=== PATIENT | female | born 1990 | race Caucasian/White ===

== ENCOUNTER 2018-04-13 03:59 | Inpatient (IN) ==
--- OUTSIDE RECORDS SUMMARY | 2018-04-13 04:04 | External Medical Summary | Continuity of Care Document ---
:1990 Author Organization [facility] Address [address] [place], [place] [id number] Phone Care Team Providers Name Role Phone Mallory Chamberlain APRN Unavailable Unavailable Allergies, Adverse Reactions, Alerts Substance Reaction Severity Status Sulfa (Sulfonamide Antibiotics) Hives Unknown Active Medications Medication Instructions Dosage Effective Dates Status Comments (start - stop) Iron (ferrous take 1 tablet by Not Available - Active sulfate) 325 mg oral route every (65 mg iron) day tablet Vitamin take 1 tablet by Not Available - Active tablet oral route every day Vitamin C 100 mg - Active tablet Problems Condition Effective Dates (start - stop) Clinical Status Encounter for suprvsn of normal - , third trimester 31 weeks gestation of - Encounter for suprvsn of normal - , first trimester 10 weeks gestation of - Abnormal ultrasonic finding on - screening of mother Encounter for suprvsn of normal - , third trimester 29 weeks gestation of - Abnormal ultrasonic finding on - screening of mother Encounter for suprvsn of normal - , second trimester 19 weeks gestation of - Abnormal ultrasonic finding on - screening of mother Maternal care for oth - abnormality and damage, unsp 23 weeks gestation of - Abnormal ultrasonic finding on - screening of mother Maternal care for oth - abnormality and damage, unsp 27 weeks gestation of - Family history of endo, nutritional - and metabolic diseases Abnormal ultrasonic finding on - screening of mother Maternal care for oth - abnormality and damage, unsp 33 weeks gestation of - Family history of endo, nutritional - and metabolic diseases Abnormal ultrasonic finding on - screening of mother Encounter for suprvsn of normal - , second trimester 23 weeks gestation of - Encounter for suprvsn of normal - , second trimester 14 weeks gestation of - Encounter for suprvsn of normal - , second trimester 19 weeks gestation of - Procedures Procedure Date OB Visit No Charge Results Test Name Date and Time Measure Units Reference Range Abnormal Flag Comments Unknown Advance Directives Directive Yes / No Effective Date File Name Unknown Encounters Encounter Practice Location Reason(s) Diagnoses Date Provider Care Team Description For Visit Members Rajiv [place] Abnormal February- Sobbing Referring In Womens ultrasonic 0-201 [place]. Provider: Marielena JOSEPH, finding on 8 [address] [place] [address] Medical [place] [address], 1522, screening of Center [address] [place], mother[place]aternal [place], care for oth [address] [id number], [address], Drive abnormality and [place], [address], tel:+2 damage, unsp33 Robbie [place], weeks [place] [address], [place], [address]. of [place]. tel: pregnancyFamily tel: [phone] history of endo, [id number] nutritional and metabolic diseases [facility] Encounter for Apr-2 Sobbing Referring In Womens suprvsn of 6-201 [place]. Provider: Marielena JOSEPH, normal 8 [address] [place] [address] , third Medical [place], 1522, [id number] Center [address] [place], weeks gestation [place], of Suite Center [id number], [address], [address] [place], [address], tel:[phone] Rob[place], [address], [place], [address]. [place]. tel: tel: [phone] Rajiv [place] Abnormal Apr-1 Sobbing Referring In Womens ultrasonic [place]. Provider: Marielena JOSEPH, finding on 8 700 [facility] Medical [place], 1522, screening of Center 700 [facility], for suprvsn of Suite Center [id number], normal 120, Drive [place] , third [place], [address], tel:+2 [id number] Robbie [place]IE[place], weeks gestation [address], [place], [address]. of [place]. tel: tel: [phone] [facility] Abnormal Mar-2 Sobbing Referring In Womens ultrasonic [place]. Provider: Marielena JOSEPH, finding on 8 700 [facility] Medical [place], 1522, screening of Center [address] [place] [address], care for ot [address] [id number], [address], Drive [place] abnormality and [place], [address], tel:+ damage, unsp27 Robbie NORIEGA, weeks gestation [address], [place], [address]. of [place]. tel: pregnancyFamily tel: [phone] history of endo, [id number] nutritional and metabolic diseases [facility] Abnormal Feb-2 Sobbing Referring In Womens ultrasonic [place]. Provider: Marielena JOSEPH, finding on 8 700 [facility] Medical [place], 1522, screening of Center 700 [facility], for suprvsn of Suite Center [id number], normal 120, Drive [place] , [place], [address], tel:+2 second Robbie NORIEGA, [id number], [place], [address]. weeks gestation [place]. tel: of tel: [phone] [facility] Abnormal Feb-2 Sobbing Referring In Womens Ultrasound ultrasonic [place]. Provider: Marielena JOSEPH, finding on 8 700 [facility] Medical [place], 1522, screening of Center [address] [place] [address], care for ot Suite [address] [id number], 120, Drive [place] abnormality and [place], [address], tel:+2 damage, unsp23 Robbie NORIEGA, weeks gestation [address], [place], [address]. of [place]. tel: tel: [phone] Rajiv [place] Abnormal Feb-0 Sobbing Referring In Womens ultrasonic [place]. Provider: Marielena JOSEPH, finding on 8 700 [facility] Medical [place], 1522, screening of Center [address] [place], [facility]ounter [facility], [facility], for suprvsn of Suite Center [id number], normal 120, Drive [place] , [place], [address], tel:+[phone] second Robbie NORIEGA, [email or web address] [address], [place], [address]. weeks gestation [place]. tel: of tel: [phone] Rajiv [place] Encounter for Feb-0 Sobbing Referring In Womens Ultrasound suprvsn of [place]. Provider: Marielena JOSEPH, normal 8 700 [facility] Box , Medical [place], 1522, second Center [address] [place], [address], [facility], weeks gestation Suite Center [id number], of [address], [address] [place], [address], tel:+[phone] Robbie [place], [address], [place], [address]. [place]. tel: tel: [phone] Rajiv [place] Encounter for Dec-2 Sobbing Referring In Womens suprvsn of 8 [place]. Provider: Marielena JOSEPH, normal 7 700 [facility] Box , Medical [place], 1522, second Center [address] [place], [address], [facility], weeks gestation Suite Center [id number], of 120, [address] [place], [address], tel:+ Robbie [place], [address], [place], [address]. [place]. tel: tel: [phone] Rajiv [place] Encounter for Nov-3 Sobbing Referring In Womens suprvsn of 0-201 [place]. Provider: Marielena JOSEPH, normal 7 700 [place] PO Box , first Medical [place], 1522, Center [address] [place], weeks gestation [address], [facility], of Suite Center [id number], [address], Drive [place], [address], tel:+[phone] Robbie [place], [address], [place], [address]. [place]. tel:[phone] tel: [phone] Associates [facility] [place] In Womens 1-201 [facility], 7 700 [facility] [address], [address] [place], [facility] [place], 120, [id number], [place], [place], tel:[phone] , [place]. tel: [phone] Family History Family Member Diagnosis Age At Onset Mother Hypertension Son Thyroid Disorder Immunizations Vaccine Date Status Comments Tdap completed Source: New Immunization Record Influenza, injectable, completed Source: Other Provider quadrivalent, preservative free, 3 yrs or older Payers Payer name Insurance type Covered republican ID Authorization(s) [employer] [id number] [facility] - [id number] Medicaid BCBS Out Of State [id number] [employer] [id number] [facility] - [id number] Medicaid Social History Type Description Quantity Date Captured Alcohol Use Details No Caffeine Use Details Unknown Tobacco Use Status Unknown Smoking Status Never smoker Vital Signs Date / Height Weight BMI Pulse Blood Temperature Respiratory Body Head BMI Time: Rate Pressure Rate Surface Circumference percentile Area 125.70 22.6 108/73 -2018 lbs 2 mm[Hg] 1:07 kg/m PM eter (2) Chief Complaint And Reason For Visit Unknown Chief Complaint And Reason For Visit Reason For Referral Reason For Referral Unknown Plan Of Care Date Type Action Status Appointment Graciela Gilbert BOOKED Future Order: Radiology Order Ultrasound, OB Limited ([id number]) Ordered Future Order: Radiology Order Complete OB Ultrasound > 14 Ordered Weeks ([id number]) Date Type Problem Goal Intervention Status Start Date Unknown. History Of Present Illness Encounter Date Complaint History Of Present Illness This patient has no known history of present illness Functional Status Encounter Date Functional Assessment Cognitive Assessment Unknown Medications Administered Medication Instructions Dosage Effective Dates (start - stop) Status Comments Drug Treatment Unknown Instructions Date Instruction Additional Information HIV and other routine tests risk factors identified by history anticipated course of care nutrition and weight gain counseling, special diet toxoplasmosis precautions (cats / raw meat) sexual activity exercise indications for ultrasound influenza vaccine environmental / work hazards travel tobacco (ask, advise, assess, assist and arrange) alcohol illicit / recreational drugs use of any medications (including supplements, vitamins, herbs, OTC drugs) smoking counseling domestic violence seat belt use childbirth classes / hospital facilities hospital registration genetic testing new ob handbook risks
--- OUTSIDE RECORDS SUMMARY | 2018-04-13 04:04 | External Medical Summary | Continuity of Care Document ---
:1990 Author Organization [facility] Address [address] [place], [place] [id number] Phone Care Team Providers Name Role Phone Mallory Chamberlain APRN Unavailable Unavailable Allergies, Adverse Reactions, Alerts Substance Reaction Severity Status Sulfa (Sulfonamide Antibiotics) Hives Unknown Active Medications Medication Instructions Dosage Effective Dates Status Comments (start - stop) Vitamin take 1 tablet by Not Available - Active tablet oral route every day Problems Condition Effective Dates (start - stop) Clinical Status Abnormal ultrasonic finding on - screening of mother Maternal care for oth - abnormality and damage, unsp 23 weeks gestation of - Encounter for [...] weeks gestation of - Procedures Procedure Date Ultrasnd exam, preg uterus, limited Echo exam of heart Doppler color flow mapping Results Test Name Date and Time Measure Units Reference Range Abnormal Flag Comments Unknown Advance Directives Directive Yes / No Effective Date File Name Unknown Encounters Encounter Practice Location Reason(s) Diagnoses Date Provider Care Team Description For Visit Members [facility] Abnormal Feb-2 Sobbing Referring In Womens ultrasonic [place]. Provider: Marielena JOSEPH, finding on 8 700 [facility] Medical [place] L, 1522, screening of Center [address] [place], [facility], for suprvsn of Suite Center [id number], normal 120, Drive [place] , [place], [address], tel:+[phone] second Robbie NORIEGA, [email or web address] [address], [place], [address]. weeks gestation [place]. tel: of tel: [phone] [facility] Abnormal Feb-2 Sobbing Referring In Womens Ultrasound ultrasonic [place]. Provider: Marielena JOSEPH, finding on 8 700 [facility] Medical [place] L, 1522, screening of Center 700 [place], [facility]aternal [facility], care for oth Suite [address] [id number], [address], Drive [place] abnormality and [place], [address], tel:+[phone] damage, unsp23 [place], weeks [place] [address], [place], [address]. of [place]. tel: tel: [phone] [facility] Abnormal Feb-0 Sobbing Referring In Womens ultrasonic [place]. Provider: Marielena JOSEPH, finding on 8 700 [facility] Medical [place], 1522, screening of Center [address] [place], [facility], for suprvsn of Suite Center [id number], normal 120, Drive [place] , [place], [address], tel:+[phone] second Robbie NORIEGA, [id number] [address], [place], [address]. weeks gestation [place]. tel: of tel: [phone] [facility] Encounter for Feb-0 Sobbing Referring In Womens Ultrasound suprvsn of [place]. Provider: Marielena JOSEPH, normal 8 700 [facility] , Medical [place], 1522, second Center [address] [place], [email or web address], [facility], weeks gestation Suite Center [id number], of [address], Drive [place], [address], tel:+ Rob[place], [address], [place], [address]. [place]. tel: tel: [phone] Rajiv [place] Encounter for Dec-2 Sobbing [facility] 8-201 [place]. Provider: Marielena JOSEPH, poppy 7 700 [place] [address] Box , Medical [place], 1522, second Center [address] [place], [email or web address], [facility], weeks gestation Suite [address] [id number], of [address], Drive [place], [address], tel:+ Rob[place], [address], [place], [address]. [place]. tel: tel: [phone] Rajiv [place] Encounter for Nov-3 Sobbing Referring In [facility] 0-201 [place]. Provider: Marielena JOESPH, poppy 7 700 [place] [address] , first Medical [place], 1522, [id number] Center [address] [place], weeks gestation [facility] [place] [facility], [facility], of Suite [address] [id number], [address], Drive [place], [address], tel:+ Rob[place], [address], [place], [address]. [place]. tel: tel: [phone] Rajiv [place] Nov-2 [place] In Womens 1-201 [facility]. Marielena JOSEPH, 7 700 [address] Medical [address], [address] [place], [place], 120, [id number], [place], [place], tel: [phone] , [place]. tel: [phone] Family History Family Member Diagnosis Age At Onset Mother Hypertension Son Thyroid Disorder Immunizations Vaccine Date Status Comments Influenza, injectable, quadrivalent, completed Source: Other Provider preservative free, 3 yrs or older Payers Payer name Insurance type Covered green party ID Authorization(s) [facility] [id number] [facility] - [id number] Medicaid BC Out Of State [id number] Social History Type Description Quantity Date Captured Unknown Vital Signs Date / Height Weight BMI Pulse Blood Temperature Respiratory Body Head BMI Time: Rate Pressure Rate Surface Circumference percentile Area Unknown Chief Complaint And Reason For Visit Unknown Chief Complaint And Reason For Visit Reason For Referral Reason For Referral Unknown Plan Of Care Date Type Action Status Appointment Graciela Gilbert BOOKED Future Order: Radiology Order Ultrasound, OB Limited ([id number]) Ordered Future Order: Radiology Order Complete OB Ultrasound > 14 Ordered Weeks ([id number]) Date Type Problem Goal Intervention Status Start [...]
[2018-04-13] MEDS ORDERED: CARBOPROST 250 MCG/ML INJECTION IM PRN (04:37)
[2018-04-13] MEDS ORDERED: LR 1,000 ML IV PRN (04:37)
[2018-04-13] MEDS ORDERED: METHYLERGONOVINE 0.2 MG/ML INJECTION IM PRN (04:37)
[2018-04-13] MEDS ORDERED: LIDOCAINE 1% (10mg/ml) 2mL INJ PF SDV ID PRN (04:37)
[2018-04-13] MEDS ORDERED: ACETAMINOPHEN 500 MG TABLET PO PRN ×2 (04:37→07:54)
[2018-04-13] MEDS ORDERED: MAG-AL + SIM ORAL LIQUID 30ml PO PRN ×2 (04:37→07:54)
[2018-04-13] MEDS ORDERED: CALCIUM CARBONATE Chewable 500mg TABLET PO PRN ×2 (04:37→07:54)
[2018-04-13] MEDS ORDERED: AMPICILLIN 2 GM in NS 100 ML IV ONE (05:00)
[2018-04-13 05:19] VITALS: BMI 22.6
--- NOTE | 2018-04-13 06:20 | Anesthesia Preoperative Report ---
Anesthesia Epidural/Spinal Rec - Date and Time Date: 04/13/18 Procedure: Labor Epidural Plan: Epidural - Vital Signs /Para: P:2 - Medictaions & Allergies Inpatient Medications: Current Medications Acetaminophen (Tylenol) 500 - 1,000 mg PO Q4H PRN PRN Reason: Pain Al Hydroxide/Mg Hydroxide (Maalox Plus) 30 ml PO Q3H PRN PRN Reason: Indigestion Calcium Carbonate (Tums) 500 - 1,000 mg PO Q2H PRN PRN Reason: Indigestion Carboprost Tromethamine (Hemabate) 250 mcg IM O PRN PRN Reason: .Downtime Lactated Ringer's (Lactated Ringers) 1,000 mls @ 999 mls/hr IV .Q1H1M PRN Last Admin: 04/13/18 05:03 Dose: 999 mls/hr Ampicillin Sodium 1 gm/ Sodium (Chloride) 100 mls @ 200 mls/hr IV Q4H JEANNE Lidocaine HCl (Xylocaine-Mpf 1% Vial) 0.2 mg ID O PRN PRN Reason: IV Start Methylergonovine Maleate (Methergine) 0.2 mg IM O PRN Misoprostol (Cytotec) 800 mcg MT ONCE PRN Allergies/Adverse Reactions: Allergies Allergy/AdvReac Type Severity Reaction Status Date / Time Sulfa (Sulfonamide Allergy Hives Verified 12/24/17 09:32 Antibiotics) - Home Medications Home Medications: Home Medications Medication Instructions Recorded Confirmed Type Vits #93/Iron Fum/FA 1 each PO DAILY 12/24/17 04/13/18 History [ Formula Tablet] Ascorbic Acid [Vitamin C] 100 mg PO DAILY 04/04/18 04/13/18 History Ferrous Sulfate [Iron] 325 mg PO DAILY 04/04/18 04/13/18 History - Medical History Respiratory: DENIES: Asthma Cardiovascular: DENIES: Angina, Hypertension Gastrointestional: Reports: Gastroesophageal Reflux Disease Other History: Reports: Now - Surgical History HEENT Surgeries: Reports: Tonsillectomy GI Surgery/Treatments: Reports: Cholecystectomy Reproductive Surgery/Treatment: Reports: Other (UTERINE PERFORATION FROM MIRENA) DENIES: Section Anesthesia Reactions: None Hx Family Anesthesia Reaction: No History of Motion Sickness: No - Social History Smoking Status: Never smoker Second Hand Exposure: No Substance Use Type: does not use Alcohol Intake Frequency: does not drink - Pertinent Findings Lab Data: CBC and BMP 04/13/18 04:54 - Physical Exam Respiratory Exam: lungs clear, bilateral breath sounds equal Cardiovascular Exam: regular rate and rhythm - Airway Assessment Mallampati Score: II TMD: 3 Fingerbreadths Neck Extension: good Overall Assessment: may be difficult mask vent, may be difficult intubation - ASA ASA Score: 2 - Discussion Discussion: Discussed risks/options/alternatives of anesthesia and questions answered. Patient consents. Nursing pain assessment noted. Anesthesia Discussion: spouse Attestation Statement: Prior to the delivery of any anesthetic medication, I examined the patient, developed the plan, obtained the patient's consent and discussed the risk and benefits of the procedure with the patient/guardian.
[2018-04-13] MEDS ORDERED: NALOXONE 0.4 MG/ML INJECTION IVP PRN (06:23)
[2018-04-13] MEDS ORDERED: ROPIVACAINE 1% 10MG/ML INJ 200 MG, SUFentanil 50 MCG in NS 100 ML EPI PRN (06:23)
[2018-04-13] MEDS ORDERED: DiphenhydrAMINE 50 MG/ML INJECTION IVP PRN (06:23)
[2018-04-13] MEDS ORDERED: ONDANSETRON 4 MG/2 ML INJECTION IVP PRN (06:23)
[2018-04-13] MEDS ORDERED: HYDROCORTISONE 2.5% CREAM 30gm RECTALLY PRN (07:54)
[2018-04-13] MEDS ORDERED: Oxycodone/Acetaminophen 5/325 1 TAB PO PRN (07:54)
[2018-04-13] MEDS ORDERED: OXYTOCIN DRIP 30 UNIT/500 ML ML IV PRN (07:54)
[2018-04-13] MEDS ORDERED: DiphenhydrAMINE 25 MG CAPSULE PO PRN (07:54)
--- NOTE | 2018-04-13 07:58 | OB/GYN Procedure Note ---
Delivery date: 04/13/18 Procedure: Intrapartal events: None Induction method: none Route of delivery: Laceration description: Periurethral - 1st Degree Delivery repair: chromic Estimated blood loss (mL): 200 Anesthesia type: Epidural Disposition: floor - [place] Baby 1 gender: Male presentation: Vertex Placenta delivery description: Spontaneous cord vessel description: 3 Vessels at 1 minute: 8 at 5 minutes: 9
[2018-04-13] MEDS ORDERED: OXYTOCIN DRIP 30 UNIT/500 ML ML IV SCH (08:00)
[2018-04-13] MEDS ORDERED: AMPICILLIN 1 GM in NS 100 ML IV SCH (09:00)
[2018-04-13] MEDS: IBUPROFEN 800 MG TABLET PO PRN (09:25)
[2018-04-13] MEDS: DOCUSATE CALCIUM 240 MG CAPSULE PO SCH (09:25)
--- NOTE | 2018-04-13 10:29 | Labor and Delivery Note ---
DATE OF DELIVERY: 04/13/2018 DELIVERY NOTE There was a spontaneous vaginal delivery over intact perineum with epidural anesthesia of a viable male infant, named Joellen. No nuchal cord was noted. Three-vessel cord was noted with spontaneous delivery of the placenta. There were bilateral periurethrals which were repaired with 3-0 chromic in a running fashion. The patient presented in spontaneous labor with history of spontaneous rupture of membranes. She was noted to be 3 cm and received an epidural. She progressed over the next hour to 6 cm and 100% effaced. Over the next hour she proceeded to complete and +1 station when she started pushing with the fetus in the OP position. She pushed for approximately 15 minutes with spontaneous resolution and rotation of the fetus to the OA position. CARMELITA
[2018-04-13 11:03] VITALS: RESP 16
[2018-04-14] MEDS: PRENATAL VITAMIN TABLET PO SCH (08:42)
[2018-04-14] MEDS: DOCUSATE CALCIUM 240 MG CAPSULE PO SCH (08:42)
[2018-04-14] MEDS: FERROUS SULFATE 324 MG TABLET PO SCH (08:42)
--- NOTE | 2018-04-14 10:42 | Anesthesia Postoperative Note ---
- Date and Time Date: 04/14/18 Time: 10:41 - Status Patient Participated in Evaluation: Patient Participated in Person Vital Signs: Temperature 98.3 F 04/14/18 06:00 Pulse Rate 67 04/14/18 06:00 Respiratory Rate 16 04/14/18 06:00 Blood Pressure 95/57 04/14/18 06:00 Pulse Oximetry 97 04/14/18 06:00 Respiratory Function: Airway Patent Cardiovascular Function: Regular Pulse Mental Status: Alert and Oriented Pain Intensity: 0 Hydration: Taking PO Fluids Complications During Recover: None Apparent - Follow-Up Instructions Instructions: Per Surgeon
[2018-04-14] MEDS: IBUPROFEN 800 MG TABLET PO PRN (17:07)
[2018-04-14] MEDS: ASCORBIC ACID 500 MG TABLET PO SCH (17:07)
[2018-04-15 04:16] VITALS: BP 99/66; PULSE 63; TEMP 97.6; O2SAT 99
[2018-04-15] MEDS: FERROUS SULFATE 324 MG TABLET PO SCH (10:31)
[2018-04-15] MEDS: PRENATAL VITAMIN TABLET PO SCH (10:31)
[2018-04-15] MEDS: DOCUSATE CALCIUM 240 MG CAPSULE PO SCH (10:31)
[2018-04-15] MEDS: ASCORBIC ACID 500 MG TABLET PO SCH (10:34)
== END 2018-04-15 12:08 | disposition home or self-care (01) | DRG 775 ==
LOC: OBOBS 03:59 → MC 04:02
PROVIDERS: ADMIT Obstetrics & Gynecology; ATTEND Obstetrics & Gynecology